=== PATIENT | female | born 2000 | race Caucasian/White ===

== ENCOUNTER 2024-04-18 15:59 | Emergency (ER) | payer SELFPAY ==
[~2024-04-18 15:59] MED LIST: ALBUTEROL2.5 MG/3 M IH; AMOXICILLIN AND1 TA2 PO; NEB IH; PREDNISONE20 MG PO
[2024-04-18] MEDS ORDERED: AMOXICILLIN 50500 MG (16:20)
[2024-04-18 16:28] LABS: URINE APPEARANCE CLEAR (CLEAR); URINE BILIRUBIN NEGATIVE (NEGATIVE); URINE BLOOD 3+ (NEGATIVE); URINE COLOR YELLOW (YELLOW); URINE GLUCOSE NEGATIVE (NEGATIVE); URINE KETONE NEGATIVE (NEGATIVE); URINE LEUKOCYTE ESTERASE NEGATIVE (NEGATIVE); URINE NITRATE NEGATIVE (NEGATIVE); URINE PROTEIN(semi-quant) NEGATIVE (NEGATIVE)
[2024-04-18] MEDS ORDERED: ZOFRAN ODT4 MG PO (16:32)
[2024-04-18 16:50] LABS: HEMATOCRIT 39.7 % (37.0-47.0); HEMOGLOBIN 13.4 g/dL (12.5-16.0); MEAN CELL VOLUME 86 fl (78-100); MEAN CORPUSCULAR HEMOGLOBIN 29 pg (27-31); MEAN CORPUSCULAR HGB CONC 34 g/dL (33-37); MEAN PLATELET VOLUME 9.4 fl (7.4-10.4); PLATELET COUNT 224 K/mm3 (130-400); RED BLOOD COUNT 4.63 M/mm3 (4.10-5.30); RED CELL DISTRIBUTION WIDTH 12.8 % (11.5-14.5); WHITE BLOOD COUNT 8.4 K/mm3 (4.8-10.8)
[2024-04-18 17:12] LABS: BAND 18 % (0-10); LYMPHOCYTE 6 % (20-51); MONOCYTE 6 % (3-10); NEUTROPHILS 70 % (42-75)
[2024-04-18 17:15] LABS: ALBUMIN 4.4 g/dL (3.5-5.0)
[2024-04-18 17:16] LABS: CALCIUM 9.2 mg/dL (8.3-10.5)
[2024-04-18 17:18] LABS: TOTAL PROTEIN 7.7 g/dL (6.4-8.3)
[2024-04-18 17:19] LABS: TOTAL BILIRUBIN 0.3 mg/dL (0.2-1.2)
[2024-04-18 17:52] VITALS: BP 116/74
== END 2024-04-18 17:54 | disposition home or self-care (01) ==
LOC: ED 15:59
PROVIDERS: Physician Assistant
DX: J06.9 Acute upper respiratory infection, unspecified (principal); N20.9 Urinary calculus, unspecified